=== PATIENT | male | born 1990 | race Caucasian/White ===

== ENCOUNTER 2016-10-09 17:02 | Emergency (ER) | payer BC ==
[2016-10-09 17:13] VITALS: BP 160/97
[2016-10-09] MEDS ORDERED: HYDROcodone/ACETAMIN 5-325 MG* 1 TAB PO ONE (17:16)
--- NOTE | 2016-10-09 17:22 | UC ---
[facility] H[facility] - HPI Summary HPI Summary: left upper tooth pain---got a filling last week now the tooth is infected dentist started antibiodics but the pain is way worse has been taking 800 mg of IBU every 5 hours - History of Current Complaint Chief Complaint: UCDentalProblem Stated Complaint: TOOTH COMPLAINT Time Seen by Provider: 10/09/16 17:05 Hx Obtained From: Patient Onset/Duration: Sudden Onset, Lasting Hours, Still Present Severity: Severe Pain Intensity: 10 Pain Scale Used: 0-10 Numeric Aggravating: Nothing Alleviating: OTC Meds Related History: Previous Dental Care on Same Tooth - Allergies/Home Medications Allergies/Adverse Reactions: Allergies Allergy/AdvReac Type Severity Reaction Status Date / Time No Known Allergies Allergy Verified 10/09/16 17:13 Home Medications: Home Medications Ibuprofen TAB* [Motrin TAB* 800 MG] 10/09/16 [History] Penicillin VK TAB* [Penicillin VK 250 mg Tab*] 10/09/16 [History] PMH/Surg Hx/FS Hx/Imm Hx Previously Healthy: Yes Cardiovascular History Of: Reports: Hypertension - not trated - Surgical History Surgical History: None - Family History Known Family History: Negative: Blood Disorder Family History: no medical problems in family lineage - Social History Occupation: Employed Full-time Lives: With Family Alcohol Use: Occasionally Substance Use Type: Marijuana Substance Use Comment - Amount & Last Used: ocassionally Smoking Status (MU): Former Smoker Length of Time of Smoking/Using Tobacco: 6 years When Did the Patient Quit Smoking/Using Tobacco: July 2016 - Immunization History Most Recent Influenza Vaccination: denies Review of Systems Constitutional: Negative Skin: Negative Eyes: Negative ENT: Dental Pain - #11 Respiratory: Negative Cardiovascular: Negative Gastrointestinal: Negative Genitourinary: Negative Motor: Negative Neurovascular: Negative Musculoskeletal: Negative Neurological: Negative Psychological: Negative All Other Systems Reviewed And Are Negative: Yes Physical Exam Triage Information Reviewed: Yes Appearance: Well-Appearing, Well-Nourished, Pain Distress Vital Signs: Initial Vital Signs Temp 96.3 F 10/09/16 17:08 Pulse 88 10/09/16 17:08 Resp 12 10/09/16 17:08 BP 160/97 10/09/16 17:08 Pulse Ox 99 10/09/16 17:08 Vital Signs Reviewed: Yes Eye Exam: Normal Eyes: Positive: Conjunctiva Clear ENT Exam: Normal ENT: Positive: Normal ENT inspection, Hearing grossly normal, Pharynx normal, TMs normal. Negative: Nasal congestion, Nasal drainage, Tonsillar swelling, Tonsillar exudate Dental Exam: Normal Dental: Positive: Percussion Tenderness @ - "11. Negative: Dental Fracture @, Cellulitis @ Neck exam: Normal Neck: Positive: Supple, Nontender, No Lymphadenopathy Respiratory Exam: Normal Respiratory: Positive: Chest non-tender, Lungs clear, Normal breath sounds, No respiratory distress, No accessory muscle use Cardiovascular Exam: Normal Cardiovascular: Positive: RRR, No Murmur, Pulses Normal, Brisk Capillary Refill Musculoskeletal Exam: Normal Musculoskeletal: Positive: Strength Intact, ROM Intact, No Edema Neurological Exam: Normal Neurological: Positive: Alert, Muscle Tone Normal Psychological Exam: Normal Skin Exam: Normal Dental Complaint Course/Dx - Course Course Of Treatment: decrease ibuprofen to every 8 hours, continue PCN, add Hydrocodne--follow with PCP for BP Re-check - Differential Dx/Diagnosis Differential Diagnosis/Dx: Dental Abscess, Dental Caries, Fractured Tooth, Odontogenic Pain, Peridontic Disease, Peritonsillar Abcess Provider Diagnoses: Dental Caries #11, Hypertension with no diagnosis Discharge - Discharge Plan Condition: Stable Disposition: HOME Patient Education Materials: Ibuprofen (By mouth), Dental Caries (ED) Referrals: [facility] [Outside] - 1 Week (for blood pressure re-check) No Primary Care Phys,NOPCP [Primary Care Provider] - Additional Instructions: Follow with dentist as planned next week
== END 2016-10-09 17:45 | disposition home or self-care (01) ==
LOC: UCEAST 17:02
DX: K02.9 Dental caries, unspecified (principal); I10 Essential (primary) hypertension; Z87.891 Personal history of nicotine dependence
CPT/HCPCS: 99212; G0463